=== PATIENT | female | born 1955 | race Caucasian/White ===

== ENCOUNTER 2019-06-12 11:34 | Emergency (ER) | payer MEDICARE, BC ==
[~2019-06-12] VITALS: Ht 162.6 cm; Wt 56.2 kg
[2019-06-12 11:54] VITALS: BP 162/91
--- NOTE | 2019-06-12 14:33 | NUR ---
See genital exam by provider.
[2019-06-12] MEDS ORDERED: LIDO30CR23 TP (14:45)
[2019-06-12 15:03] LABS: CLARITY,URINE SLIGHTLY CLOUDY (Clear); COLOR,URINE YELLOW (Yellow); GLUCOSE, URINE >=1000 mg/dl (Neg); KETONES,URINE NEGATIVE (Neg); LEUKOCYTE ESTERASE ,URINE MODERATE (Neg); NITRITES, URINE POSITIVE (Neg); OCCULT BLOOD,URINE MODERATE (Neg); PH,URINE 5.5 (4.8-8.0); PROTEIN,URINE NEGATIVE (Neg); UROBILINOGEN,URINE 0.2 E.U/dL (0.2-1.0)
[2019-06-12 15:04] LABS: UA COLLECTION TYPE CLN CATCH MIDSTREAM
[2019-06-12 15:12] LABS: BACTERIA,URINE 4+ /HPF (Neg); SQUAMOUS EPITHELIAL CELL,UR FEW /LPF (FEW); WBC CLUMPS,URINE MANY /HPF (NEGATIVE); WBC,URINE 50-100 /HPF (0-4)
[2019-06-12] MEDS ORDERED: CEFD300C3 PO (15:13)
== END 2019-06-12 15:27 | disposition home or self-care (01) ==
LOC: ER 11:35
DX: N39.0 Urinary tract infection, site not specified (principal); A60.00 Herpesviral infection of urogenital system, unspecified; Z79.2 Long term (current) use of antibiotics; Z79.899 Other long term (current) drug therapy
CPT/HCPCS: 81001; 87077; 87088; 87186; 99283